=== PATIENT | male | born 2000 | race Caucasian/White ===

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

== ENCOUNTER 2025-02-02 17:42 | Emergency (ER) | payer SELFPAY ==
[2025-02-02 17:53] VITALS: BP 135/93; PULSE 97; RESP 16; TEMP 36.7; O2SAT 100
--- NOTE | 2025-02-02 18:45 | ED.ANXIETY ---
HPI - Anxiety General Chief Complaint: Anxiety Stated Complaint: ANXIETY Time Seen by Provider: 02/02/25 18:30 Source: patient and RN notes reviewed Mode of arrival: ambulatory Limitations: no limitations History of Present Illness HPI narrative: 24-year-old male patient presents Express Care complaining of anxiety. Patient says he has a history of panic attacks has never been evaluated by For that. His says the episodes usually last a few hours and subside on their own. This episode has lasted about the last 2-3 days. Patient says he is under lot of stress at work. Patient reports having palpitations, nausea, vomiting, and restless thoughts. Patient denies any suicidal thoughts, thoughts of wanting to kill himself or any homicidal ideations. Patient has not taken to help with anxiety. Patient does not have a primary care provider. Patient denies any drug or alcohol use. Related Data Allergies Allergy/AdvReac Type Severity Reaction Status Date / Time amoxicillin AdvReac Unknown VOMITING Verified 02/02/25 18:01 clavulanic acid AdvReac Unknown VOMITING Verified 02/02/25 18:01 Review of Systems Review of Systems: CONSTITUTIONAL: Denies fever, chills, or sweats. EYES: Denies visual changes, redness, or discharge. ENT: Denies rhinorrhea, congestion, sore throat, or otalgia. CARDIOVASCULAR: Denies chest pain, dizziness, lightheadedness, or edema. Positive palpitation RESPIRATORY: Denies cough or dyspnea. GASTROINTESTINAL: Denies abdominal pain, or diarrhea. Positive for nausea and vomiting. GENITOURINARY: Denies dysuria or hematuria. SKIN: Denies rash or itching. MUSCULOSKELETAL: Denies back pain, joint pain, or myalgia. NEUROLOGIC: Denies headache, loss of consciousness numbness, or weakness. PSYCHIATRIC: Positive for anxiety. Negative for depression, suicidal ideations, homicidal ideations. All other systems reviewed are negative, except as documented in HPI. [facility] Past Medical History Medical History Migraine Social History Social History Smoking status: Never smoker Comments At the time of my signature, I reviewed and agree with the nursing past medical, surgical, social, and family history. There is no relevant family history pertinent to the patient complaint. Exam Narrative: GENERAL: This is a well-nourished, well-developed adult, in no apparent distress. They are non ill-appearing, nontoxic appearing. Patient appears anxious and tearful. Com to 3 of syringe. HEAD: normocephalic, atraumatic. EYES: Sclera clear/white. Conjunctiva normal. Vision is grossly intact. Extraocular movements intact EARS: External ears normal, Hearing grossly intact. NOSE: External nose normal THROAT: Mucous membranes moist, NECK: Neck supple, CARDIOVASCULAR: Regular rate and rhythm without murmurs, gallops, or rubs. RESPIRATORY: Clear to auscultation. Breath sounds equal bilaterally. No wheezes, rales, or rhonchi. GASTROINTESTINAL: Abdomen soft, non-tender, nondistended. SKIN: warm, Dry, intact with no suspicious lesions or rash, good texture and turgor. NEURO: awake, alert, and oriented to person, place and time. There were no obvious focal neurologic abnormalities. EXTREMITIES: No joint tenderness, effusion, or edema noted. BACK: Nontender without deformity. Course Course Level of Care: Express Care Visit Vital Signs Vital signs: Vital Signs Temperature 98.1 F 02/02/25 17:53 Pulse Rate 97 02/02/25 17:53 Respiratory Rate 16 02/02/25 17:53 Blood Pressure 135/93 H 02/02/25 17:53 Pulse Oximetry 100 02/02/25 17:53 Temperature 98.1 F 02/02/25 17:53 Pulse Rate 97 02/02/25 17:53 Respiratory Rate 16 02/02/25 17:53 Blood Pressure 135/93 H 02/02/25 17:53 Pulse Oximetry 100 02/02/25 17:53 [facility] MDM Narrative Medical decision making narrative: Patient likely have an anxiety attack, will send him home with hydroxyzine to help. Will give patient for the PCP to get established to have his anxiety better managed. Offered pain patient transfer to the ER for his anxiety attack and he declined. Discussed supportive care and anxiety management Discussed physical exam findings. Advised supportive measures and signs/symptoms to go to the ER. Pt is appropriate for outpt treatment and f/u. Differential Diagnosis Differential Diagnosis: Anxiety attack, alcohol withdrawal, panic attack , Critical Care Time Critical Care Time Critical Care Time: No Discharge Plan Discharge Clinical Impression: Acute anxiety Patient Disposition: Home Condition: Stable Instructions: Anxiety (ED) Additional Instructions: Take hydroxyzine as needed for anxiety. Get plenty of rest. Drink plenty of clear fluids. Avoid any alcohol or caffeine. Exercise may help with anxiety symptoms as well. Follow-up with PCP in 3-5 days. If your anxiety gets worse, you develop chest pain, breathing problems, suicidal thoughts, or any serious concerns please go to the ER immediately. Patient Language: Czech Prescriptions: New hydroxyzine HCl 50 mg tablet 50 mg PO QID PRN (Reason: anxiety) Qty: 20 0RF Follow-up/Referrals: PHYSICIAN,SECURITY CONSULTANT [Primary Care Provider, Internal Medicine] Andry Pretty MD [Physician, Family Practice] - 3 Days Time of Disposition: 18:31
== END 2025-02-02 18:34 | disposition home or self-care (01) ==
DX: F41.9 Anxiety disorder, unspecified (principal)
CPT/HCPCS: 99213; G0463